=== PATIENT | female | born 1970 | race Caucasian/White ===

== ENCOUNTER 2018-06-22 06:09 | Inpatient (IN) ==
[2018-06-22] MEDS ORDERED: Albuterol 2.5 MG/3 ML NEBULIZER ONE (06:28)
[2018-06-22] MEDS ORDERED: CeFAZolin Syr 2,000MG/20 ML 2,000 MG/20 ML SYRINGE IVPB ONE (06:31)
[2018-06-22] MEDS ORDERED: Albuterol 2.5 MG/3 ML NEBULIZER IH ONE (06:31)
[2018-06-22] MEDS ORDERED: Ringers Solution, Lactated 1,000 ML IVC SCH (06:45)
[2018-06-22] MEDS ORDERED: *HR* Rocuronium Bromide 50 MG/5 ML VIAL ONE (07:07)
[2018-06-22] MEDS ORDERED: Lidocaine -MPF 4% 5 ML AMPUL ONE (07:07)
[2018-06-22] MEDS ORDERED: Lidocaine -MPF 2% 2 ML VIAL ONE (07:07)
[2018-06-22] MEDS ORDERED: *HR* FentaNYL (PF) 100 MCG/2 ML VIAL ONE ×2 (07:07→08:25)
[2018-06-22] MEDS ORDERED: *HR* Midazolam HCl 2 MG/2 ML VIAL ONE (07:07)
[2018-06-22] MEDS ORDERED: *HR* Propofol 200 MG/20 ML VIAL IVP ONE (07:08)
--- NOTE | 2018-06-22 07:17 | History & Physical Report ---
Date of Encounter: 06/22/18 Time of Encounter: 07:16 24 Hour HP Update - Instructions Instructions: If the History and Physical is less than 30 days old and was completed prior to A.M. admission and or procedure and has NOT been updated on calendar day of procedure please complete this update prior to performing procedure. - Update Patient reports changes in Medical Condition: No Changes in examination, assessment, or condition: No Changes in Medication: No Preop tests/diagnostics Reviewed: Yes Pre-Op MRSA Screen: Negative Surgery Remains Indicated: Yes Consent for Planned Operative Procedure(s) Verified: Yes - Pre-Operative Checklist Preoperative Checklist Indicated: No Prophylactic Antibiotic Ordered: Yes Home Medications Include Beta Jamilah: No Beta Jamilah Taken Today (Day of Surgery): No Beta Jamilah Taken Yesterday (Day Prior to Surgery): No Is VTE Prophylaxis Indicated?: Yes
[2018-06-22] MEDS ORDERED: Famotidine 20 MG/2 ML VIAL IVP ONE (07:37)
[2018-06-22] MEDS ORDERED: *HR* Succinylcholine 200 MG/10 ML VIAL IVP ONE (07:37)
[2018-06-22] MEDS ORDERED: Dexamethasone 4 MG/ML VIAL ONE (07:37)
[2018-06-22] MEDS ORDERED: Ondansetron 4 MG/2 ML VIAL ONE (07:37)
[2018-06-22] MEDS ORDERED: cloNIDine HCl 0.1 MG TABLET PO ONE (07:38)
[2018-06-22] MEDS ORDERED: Acetaminophen IV 1,000 MG/100 ML INFUS..BTL IVPB ONE (07:38)
[2018-06-22] MEDS ORDERED: Pregabalin 75 MG CAPSULE PO ONE (07:38)
--- NOTE | 2018-06-22 07:42 | Anesthesia Evaluation PreOp ---
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 Profound BLE Neuropathy [CANT touch feet]) Other Medical History: Renal (Stage 3 CKDz), Other (Hx Breast Ca s/p Dbl Mastectomy. Pt has whole body lymphedema/swelling - PREFERs R-ARM or L-foot IV. Declined PICC/PowerGlide at this time) Anesthesia History: No Prior Anesthetic Complications, Past Anesthesia (L-Hip scope, Breast reconstruction, Hyster, Partial Colectomy, , T&A, REctocele/Cystocele, R-knee "bone plugs") Alcohol Use: none Drug use: none Medications and Allergies Albuterol Neb [Proventil Neb] 2.5 mg IH Q2H 06/04/18 [History] Albuterol Sulfate [Ventolin Hfa] 18 gm IH PRN PRN 06/04/18 [History] Atorvastatin Calcium [Lipitor] 40 mg PO DAILY 06/04/18 [History] Dicyclomine Hcl [Bentyl] 20 mg PO DAILY PRN 06/04/18 [History] Duloxetine HCl [Cymbalta] 60 mg PO DAILY 06/04/18 [History] Fenofibrate Nanocrystallized [Fenofibrate] 160 mg PO DAILY 06/04/18 [History] Fluticasone Propionate Nasal [Flonase] 0 gm IH PRN PRN 06/04/18 [History] Lisinopril [Zestril] 40 mg PO DAILY 06/04/18 [History] Methocarbamol [Robaxin] 500 mg PO PRN PRN 06/04/18 [History] Montelukast [Singulair] 10 mg PO DAILY 06/04/18 [History] Ondansetron HCl [Zofran] 4 mg PO Q8HR PRN 06/04/18 [History] Potassium Chloride [Klor-Con 10] 10 meq PO DAILY 06/04/18 [History] Tizanidine HCl [Zanaflex] 4 mg PO DAILY 06/04/18 [History] Topiramate [Topamax] 100 mg PO BID 06/04/18 [History] Tramadol HCl [Ultram] 50 mg PO BID PRN 06/04/18 [History] Umeclidinium Brm/Vilanterol Tr [Anoro Ellipta 62.5-25 Mcg INH] 1 each IH PRN PRN 06/04/18 [History] hydrOXYzine pamoate [HydrOXYzine Pamoate] 25 mg PO DAILY 06/04/18 [History] Furosemide [Lasix] 20 mg PO DAILY 06/22/18 [History] Lidocaine 1 patch TD DAILY PRN 06/22/18 [History] Allergy/AdvReac Type Severity Reaction Status Date / Time Iodinated Contrast- Oral and Allergy Vomiting Verified 06/22/18 07:33 IV Dye iron Allergy Hives Verified 06/22/18 07:33 paclitaxel [From Taxol] Allergy Anaphylaxis Verified 06/22/18 07:33 - Meds/Allergy Pre-op Review Medications Reviewed: Yes Allergies Reviewed: Yes Beta Blockers on Current Med List: No Anesthesia Results - Labs Laboratory Tests 06/01/18 06/01/18 06/01/18 11:00 11:00 11:00 WBC 11.7 H Hgb 12.8 Hct 40.7 Plt Count 320 PT 10.9 INR 1.0 APTT 34.1 Potassium 3.8 Creatinine 1.16 Est GFR (Non-Af Amer) 49 L - Imaging EKG: report reviewed (82bpm - SINUS RHYTHM LOW QRS VOLTAGE IN PRECORDIAL LEADS [QRS DEFLECTION < 1.0 mV IN CHEST LEADS] Electronically Signed On 06-02-2018 18:06:32 EDT by Reid Jimenez) Anesthesia Exam O2 Sat Height 1.65 m Height 1.65 m Weight 101.605 kg Weight 101.605 kg O2 Sat by Pulse Oximetry 95 Vital Signs Temp Pulse Resp BP Pulse Ox 98.3 F 88 16 129/87 95 06/22/18 06:46 06/22/18 06:46 06/22/18 06:46 06/22/18 06:46 06/22/18 06:46 Height: 5'5"' Weight: 224# BMI = 38 NPO (# of Hours): MNOc - HEENT Pupil (Motor): Pupils equal Mallampati: III Teeth: Normal Oral Opening: Greater than 3 - AUTOMO[employer]LE PARKER LOC: Oriented [employer]OM[employer]ARK[employer] Motor: Normal RUE, Normal LUE, Normal RLE, Normal LLE, Normal Face [employer] PARK[employer] Sensory: Normal: RUE, LUE, RLE, LLE, Face - Cardiac Rhythm: Regular Murmur: None - Pulmonary Breath Sounds: bilateral Clear Respiratory Effort: Symmetrical Anesthesia Assess/Plan ASA Score: 3 Level of consciousness: Cooperative, Oriented, Tranquil Anesthetic Plan: General Monitoring Plan: Standard Monitors Anes Supervising Prov Stmt: PT seen/evaluated, r&B Discussed, questions answered and consent obtained. Maximo Cantu MD
[2018-06-22] MEDS ORDERED: Bacitracin 50,000 UNIT, Polymyxin B Sulfate 500,000 UNIT, Sodium Chloride IRRigation 1,... IR ONE (08:00)
[2018-06-22] MEDS ORDERED: *HR* LORazepam 1 MG TABLET ONE (08:02)
[2018-06-22] MEDS ORDERED: *HR* Remifentanil 1 MG VIAL IVP ONE (09:00)
[2018-06-22] MEDS ORDERED: Propofol 500 MG/50 ML INFUS..BTL ONE ×3 (09:05→10:37)
[2018-06-22] MEDS ORDERED: Neostigmine Methylsulfate 3 MG/3 ML SYRINGE ONE (09:39)
[2018-06-22] MEDS ORDERED: *HR* HYDROMORPHONE 2 MG/ML VIAL ONE (11:09)
[2018-06-22] MEDS ORDERED: *HR* PHENYLEPHRINE 1,000 MCG/10 ML SYRINGE IVP ONE (11:15)
--- NOTE | 2018-06-22 11:33 | Orthopedic Operative Note ---
Date of procedure: 06/22/18 Pre-op diagnosis: Spondylolisthesis, lumbar stenosis, lumbar radiculopathy Post-op diagnosis: same Operation/Findings: Posterior lumbar interbody fusion L4-L5: The patient successfully underwent general endotracheal anesthesia. The patient was given antibiotics prior to the start of the procedure. Compression boots and stockings were used for deep vein thrombosis prophylaxis. A Hoffman catheter was placed. Leads for neuro monitoring were placed on the upper and lower extremities. This included the cranium. The neuro monitoring personnel confirmed there were satisfactory readings prior to the start of the procedure. The patient was turned prone on the Maciej table. The back was prepped and draped in the usual sterile fashion. An incision was was marked and centered over the involved L4-L5 levels in the mid line. The incision was deepened through the lumbar fascia. Bovie cautery and Muñoz elevators were used to reflect the paraspinal musculature at the lateral extent of the transverse processes of the involved L4 and L5 levels. Abby clamps were placed over the L4 and L5 spinous processes. An intraoperative lateral fluorograph was obtained. A conversation was held between the surgeon and radiologist and both confirmed we had the correct operative levels. We then placed pedicle screws in standard fashion with the aid of fluoroscopy and anatomic landmarks. Briefly a starter awl was used. A gearshift was subsequently used to enter the ink printer hole via a transpedicular route into the vertebral body. The ink printer hole was tapped with an undersized instrument, and subsequently four 6.5 x 40 mm pedicle screws were placed bilaterally at the indicated L4 and L5 levels. The screws were tested with the aid of the neurologic monitoring staff via pedicle screw stimulation. All reading suggested there was no significant cortical wall breech. The screws were also evaluated fluoro- graphically and appeared to be in satisfactory position. We then turned our attention to the decompression portion of the procedure. We removed the supraspinous and interspinous ligaments and subsequently the insertion of the ligamentum flavum on the undersurface of the proximal L4 lamina was dislodged with a curette. We then removed the ligamentum flavum as well as undercut the facets at this L4-L5 level to decompress the lateral recesses. We also performed a L4 laminectomy. After the decompression, which was over and above that which was required to place the interbody graft, the foramen and traversing roots at this level were found to be free and patent. We also took part of the medial facets in order to aid in the decompression. We then protected the neural elements including the thecal sac and traversing nerve root on the right with a dural retractor. We made an annulotomy into the L4-L5 disc space and then removed entire disc material using Pituitary instruments. We trialed various size grafts after the endplates were prepared for graft insertion. A 10 x 26 enter body graft fit well within the L4-L5 disc space. We obtained some bone from the right posterior superior iliac spine through us a separate incision and combined with this with the bone which we had saved from the laminectomy portion of the procedure. This autograft bone was first placed in the anterior portion of the L4-L5 disc space and additional bone was placed within the interbody graft spacer. We then placed the interbody graft spacer obliquely across the L4-L5 disc space towards the midline while protecting the neural elements with a root retractor. When the graft was found to be in satisfactory position the veterinary medical officer was removed. We then copiously irrigated the wound. We then decorticated the L4 and L5 transverse processes as well as the facet joints of the involved L4 and L5 levels to aid in the posterolateral fusion. We placed autograft bone in the lateral gutters over these regions. We then placed rods within the screw heads of the involved L4 and L5 levels and first locked the distal screws and then subsequently locked the proximal screws so as to improve and reduce the spondylolisthesis previously seen. We then closed the wound in layers with 1 Vicryl for the fascia, 2-0 Vicryl. Subcutaneous tissue, and Dermabond was used for skin closure. Sterile dressings were placed over the wound. The patient was turned supine on a hospital bed and extubated. All sponge instruments and needle counts were correct at the end of the procedure. The patient tolerated the procedure well without complications. Anesthesia: GETA Surgeon: Reji Montanez Jr Was there an assistant wrestling coach present: No Estimated blood loss (cc): 100 Specimen: None Condition: stable Disposition: PACU
--- NOTE | 2018-06-22 13:02 | Anesthesia Evaluation Post Op ---
Date of Encounter: 06/22/18 Time of Encounter: 13:01 - Vital Signs Vital Signs: Vital Signs Temperature 98.3 F 06/22/18 06:46 Pulse Rate 88 06/22/18 06:46 Respiratory Rate 16 06/22/18 06:46 Blood Pressure 129/87 06/22/18 06:46 O2 Sat by Pulse Oximetry 95 06/22/18 06:46 Temperature 98.2 F 06/22/18 12:45 Pulse Rate 102 06/22/18 12:45 Respiratory Rate 10 06/22/18 12:45 Blood Pressure 141/90 06/22/18 12:45 O2 Sat by Pulse Oximetry 96 06/22/18 12:45 - Lungs Lungs: Clear Ascult./Percussion - Airway Airway: Non-obstructed - Cardiovascular Regular Rate - Mental Status Mental Status: Alert & Oriented, Answers Appropriately - Pain Pain Scale: 5 (pt reports she is feeling much more comfortable now and ready to walk ) Pain Scale used: Numeric (1 - 10) - Nausea Vomiting Nausea Vomiting: Not Present - Hydration Hydration: Tolerates oral liquids, Hoffman catheter - Discharge PostOp Status: Transfer Patient to floor
[2018-06-22] MEDS ORDERED: Fluticasone Propionate Nasal 50 MCG/SPRAY BOTTLE NS PRN (13:44)
[2018-06-22] MEDS ORDERED: Ondansetron 4 MG/2 ML VIAL IVP PRN (13:44)
[2018-06-22] MEDS ORDERED: Acetaminophen 325 MG TABLET PO PRN (13:44)
[2018-06-22] MEDS ORDERED: Naloxone 0.4 MG/ML INJ IVP PRN (13:44)
[2018-06-22] MEDS ORDERED: Ondansetron ODT 4 MG TAB.RAPDIS PO PRN (13:44)
[2018-06-22] MEDS ORDERED: Albuterol 2.5 MG/3 ML NEBULIZER IH PRN (13:44)
[2018-06-22] MEDS ORDERED: hydrOXYzine pamoate 25 MG CAPSULE PO PRN (13:44)
[2018-06-22] MEDS: *HR* OxyCODONE Immed Rel 5 MG TABLET PO PRN ×2 (15:38→19:55)
[2018-06-22] MEDS: Ringers Solution, Lactated 1,000 ML IVC SCH (19:03)
[2018-06-22] MEDS: Topiramate 100 MG TABLET PO SCH (19:55)
[2018-06-22] MEDS: tiZANidine 4 MG TABLET PO PRN (20:51)
[2018-06-22] MEDS: Methocarbamol 500 MG TABLET PO PRN (22:35)
[2018-06-22] MEDS: *HR* HYDROcodone/Acet 5/325 mg TABLET PO PRN (23:39)
[2018-06-23] MEDS ORDERED: Temazepam 15 MG CAPSULE PO STA (00:07)
[2018-06-23] MEDS: diazePAM 5 MG TABLET PO PRN ×2 (00:27→13:20)
[2018-06-23] MEDS: *HR* OxyCODONE Immed Rel 5 MG TABLET PO PRN ×4 (01:43→23:30)
[2018-06-23] MEDS: Ringers Solution, Lactated 1,000 ML IVC SCH (04:18)
[2018-06-23] MEDS: Methocarbamol 500 MG TABLET PO PRN ×2 (04:25→15:48)
[2018-06-23] MEDS: *HR* HYDROcodone/Acet 5/325 mg TABLET PO PRN ×2 (05:42→11:09)
[2018-06-23] MEDS: Fenofibrate 54 MG TABLET PO SCH (07:57)
[2018-06-23] MEDS: Furosemide 20 MG TABLET PO SCH (07:57)
[2018-06-23] MEDS: Lisinopril 20 MG TABLET PO SCH (07:57)
[2018-06-23] MEDS: Topiramate 100 MG TABLET PO SCH ×2 (07:58→19:53)
--- NOTE | 2018-06-23 08:11 | Orthopedics Progress Note ---
Date of Encounter: 06/23/18 Time of Encounter: 08:09 - Assessment and Plan (1) Lumbar radiculopathy Current Visit: Yes Status: Chronic (2) Lumbar stenosis Current Visit: Yes Status: Chronic Qualifiers: Neurogenic claudication status: unspecified Qualified Code(s): M48.061 - Spinal stenosis, lumbar region without neurogenic claudication (3) Spondylolisthesis Current Visit: Yes Status: Chronic Qualifiers: Spinal region: lumbar Qualified Code(s): M43.16 - Spondylolisthesis, lumbar region (4) Status post lumbar spinal fusion Current Visit: Yes Status: Acute (5) Lateral pain of left hip Current Visit: Yes Status: Acute Subjective Principal diagnosis: s/p PLIF Interval history: Date of procedure: 06/22/18 Pre-op diagnosis: Spondylolisthesis, lumbar stenosis, lumbar radiculopathy Post-op diagnosis: same Operation/Findings: Posterior lumbar interbody fusion L4-L5 The patient complains of left lateral hip pain and low back pain. Patient admits to history of trochanteric bursitis which was relieved by steroid injection to bursa. Denies any issue in past several months preop with this issue. Alert and oriented. Wearing LSO. Tender to palpation over left greater trochanter. No calf tenderness bilaterally. Neurovascularly intact with regard to bilateral lower extremities. Fires all upper and lower extremity motor groups. Assessment :stable, suspicion for left trochanteric bursitis Plan mobilize ,continue analgesics, discharge planning. Objective Vital signs: Vital Signs Temp Pulse Resp BP Pulse Ox 06/23/18 07:00 98.5 F 113 15 160/103 97 06/23/18 04:08 99.1 F 94 17 129/80 97 06/22/18 23:00 99.9 F H 95 17 159/83 99 06/22/18 20:01 98 06/22/18 19:32 97.8 F 91 17 163/88 98 06/22/18 15:31 97.9 F 100 15 150/86 93 06/22/18 14:33 97.9 F 101 14 128/87 93 06/22/18 13:58 98.1 F 111 14 137/91 97 06/22/18 13:28 98.2 F 104 12 134/62 96 06/22/18 13:15 98.2 F 106 10 138/80 96 06/22/18 13:05 107 10 142/86 96 06/22/18 12:55 104 10 128/68 93 06/22/18 12:45 98.2 F 102 10 141/90 96 06/22/18 12:35 104 10 136/98 96 06/22/18 12:25 100 10 104/79 95 06/22/18 12:15 98.1 F 100 12 118/75 97 06/22/18 12:05 99 12 120/72 95 06/22/18 11:55 98 12 115/64 95 06/22/18 11:45 98.9 F 104 12 90/60 95 Intake and Output 06/22/18 06/23/18 06/23/18 23:59 07:59 15:59 Intake Total 100 / 100 100 / 100 Output Total 1301 / 1301 Balance -1201 / -1201 100 / 100 Intake: IV Fluids 100 / 100 Ancef 2,000 MG In 0.9 % Sodium 100 / 100 Chloride 100 ML @ 200 mls/hr IVPB Q8HR [facility] Rx#:[id number] Oral 100 / 100 Output: Stool Catheter 1300 / 1300 Other: # Voids 1 1 Weight 101.7 kg Patient Weight 06/23/18 23:59 Weight 101.7 kg Consult Discharge Plan - Plan Referrals: Vu Phoenix [Primary Care Provider] - Prescriptions: Acetaminophen [Tylenol] 650 mg PO Q6HR PRN 7 Days #28 tablet PRN Reason: Pain OxyCODONE Immed Rel [Roxicodone 5 MG] 5 mg PO Q6HR PRN 5 Days #20 tablet PRN Reason: Severe Pain diazePAM [Valium] 10 mg PO Q8HR PRN 5 Days #15 tablet PRN Reason: Muscle Spasm
[2018-06-23] MEDS: Tiotropium 18 MCG inhalation IH SCH ×2 (09:09→09:20)
[2018-06-23] MEDS: tiZANidine 4 MG TABLET PO PRN ×2 (09:40→18:01)
[2018-06-23] MEDS: Acetaminophen IV 1,000 MG/100 ML INFUS..BTL IVPB ONE ×2 (16:58→18:04)
[2018-06-23] MEDS ORDERED: Ketorolac 30 MG/ML VIAL IVP ONE (18:30)
[2018-06-24] MEDS: diazePAM 5 MG TABLET PO PRN (01:21)
[2018-06-24] MEDS: *HR* OxyCODONE Immed Rel 5 MG TABLET PO PRN ×2 (04:08→08:10)
[2018-06-24] MEDS: tiZANidine 4 MG TABLET PO PRN (06:05)
[2018-06-24] MEDS: Tiotropium 18 MCG inhalation IH SCH (08:00)
--- NOTE | 2018-06-24 08:01 | Orthopedics Progress Note ---
Date of Encounter: 06/24/18 Subjective Principal diagnosis: s/p PLIF Interval history: Date of procedure: 06/22/18 Pre-op diagnosis: Spondylolisthesis, lumbar stenosis, lumbar radiculopathy Post-op diagnosis: same Operation/Findings: Posterior lumbar interbody fusion L4-L5 The patient is without complaints. Afebrile vital signs are stable. Dressing is clean dry and intact. Neurovascularly intact with regard to bilateral lower extremities. Fires all upper and lower extremity motor groups. Assessment :stable Plan mobilize ,continue analgesics, discharge planning. Objective Vital signs: Vital Signs Temp Pulse Resp BP Pulse Ox 06/24/18 06:25 98.1 F 97 18 137/96 100 06/24/18 04:10 97.8 F 100 18 130/77 99 06/23/18 23:49 98.3 F 91 17 166/89 98 06/23/18 20:27 99.2 F 06/23/18 19:55 97 06/23/18 18:23 100.4 F H 109 16 166/115 97 06/23/18 16:46 98.4 F 107 15 170/120 97 06/23/18 11:46 98.4 F 104 15 162/97 100 06/23/18 09:20 15 97 Intake and Output 06/23/18 06/24/18 06/24/18 23:59 07:59 15:59 Intake Total 500 / 500 200 / 200 Balance 500 / 500 200 / 200 Intake: Oral 500 / 500 200 / 200 Other: # Voids 1 1 Weight 101.5 kg Patient Weight 06/24/18 23:59 Weight 101.5 kg Consult Discharge Plan - Plan Referrals: Vu Phoenix [Primary Care Provider] -
[2018-06-24] MEDS: Furosemide 20 MG TABLET PO SCH (08:09)
[2018-06-24] MEDS: Fenofibrate 54 MG TABLET PO SCH (08:10)
[2018-06-24] MEDS: Lisinopril 20 MG TABLET PO SCH (08:10)
[2018-06-24] MEDS: Topiramate 100 MG TABLET PO SCH (08:11)
[2018-06-24] MEDS: Methocarbamol 500 MG TABLET PO PRN (10:12)
--- NOTE | 2018-06-24 12:50 | Discharge Summary ---
Orders not resulted at time of discharge: Pending orders 06/22/18 08:59 XR fluoroscopy <1 hr [XR] Routine 06/25/18 08:34 XR lumbar spine 2-3V [XR] Routine Date of Encounter: 06/24/18 Time of Encounter: 08:30 - Discharge Diagnosis (1) Spondylolisthesis Priority: Primary Status: Chronic Qualifiers: Spinal region: lumbar Qualified Code(s): M43.16 - Spondylolisthesis, lumbar region (2) Lumbar stenosis Priority: Primary Status: Chronic Qualifiers: Neurogenic claudication status: unspecified Qualified Code(s): M48.061 - Spinal stenosis, lumbar region without neurogenic claudication (3) Lumbar radiculopathy Priority: Primary Status: Chronic (4) Status post lumbar spinal fusion Priority: Primary Status: Acute (5) Lateral pain of left hip Priority: Secondary Status: Acute - Hospital Course Hospital course: Ms. Valverde is a 48 year old female Date of procedure: 06/22/18 Pre-op diagnosis: Spondylolisthesis, lumbar stenosis, lumbar radiculopathy Post-op diagnosis: same Operation/Findings: Posterior lumbar interbody fusion L4-L5 The patient had difficulty with pain control inpt postop. She was taking oxycodone, hydrocodone, acetaminophen, valium, robaxin, tizanidine, and lidoderm patches without relief of her left lateral hip pain. She states in the past used steroids and it resolved however postoperatively would like to avoid steroid use. Patient also noted to be CKD3 and advised against NSAID use. Progressed from intravenous analgesic needs to oral analgesic needs only though as stated her left lateral hip caused her greater pain than postop pain. Remained neurovascularly intact and mobilized satisfactorily. All intraoperative and/or postoperative radiographic studies were satisfactory. Patient is discharged home with plan for rehabilitation and follow-up in 2 weeks post discharge on analgesic medication and patient's home medications. Patient discharged home per Dr. Montanez as patient unable to tolerate hospital bed and states she will rest better at home. Warning signs discussed regarding need for reevaluation with patient and spouse who verbalized understanding. - Time Spent with Patient Total time spent providing and/or coordinating discharge services: - Discharge Medications Prescriptions: New Acetaminophen [Tylenol] 650 mg PO Q6HR PRN 7 Days #28 tablet PRN Reason: Pain OxyCODONE Immed Rel [Roxicodone 5 MG] 5 mg PO Q6HR PRN 5 Days #20 tablet PRN Reason: Severe Pain diazePAM [Valium] 10 mg PO Q8HR PRN 5 Days #15 tablet PRN Reason: Muscle Spasm Continue Umeclidinium Brm/Vilanterol Tr [Anoro Ellipta 62.5-25 Mcg INH] 1 puff IH DAILY Albuterol Sulfate [Ventolin Hfa] 2 puff IH Q4H PRN PRN Reason: Shortness Of Breath Albuterol Neb [Proventil Neb] 2.5 mg IH Q2H Tramadol HCl [Ultram] 50 mg PO BID PRN PRN Reason: Pain Topiramate [Topamax] 100 mg PO BID Tizanidine HCl [Zanaflex] 4 mg PO BID PRN PRN Reason: Muscle Pain Potassium Chloride [Klor-Con 10] 10 meq PO DAILY Ondansetron HCl [Zofran] 4 mg PO Q8HR PRN PRN Reason: Nausea Montelukast [Singulair] 10 mg PO DAILY Methocarbamol [Robaxin] 500 mg PO TID PRN PRN Reason: Muscle Pain Lisinopril [Zestril] 40 mg PO DAILY hydrOXYzine pamoate [HydrOXYzine Pamoate] 25 mg PO DAILY PRN PRN Reason: Sleep Fluticasone Propionate Nasal [Flonase] 1 spr NS DAILY PRN PRN Reason: Allergy Symptoms Fenofibrate Nanocrystallized [Fenofibrate] 160 mg PO DAILY Duloxetine HCl [Cymbalta] 60 mg PO DAILY Dicyclomine Hcl [Bentyl] 20 mg PO DAILY PRN PRN Reason: Diarrhea Atorvastatin Calcium [Lipitor] 40 mg PO DAILY Furosemide [Lasix] 20 mg PO DAILY Lidocaine 1 patch TD DAILY PRN PRN Reason: Pain Home Medications: Albuterol Neb [Proventil Neb] 2.5 mg IH Q2H 06/04/18 [History] Albuterol Sulfate [Ventolin Hfa] 2 puff IH Q4H PRN 06/04/18 [History] Atorvastatin Calcium [Lipitor] 40 mg PO DAILY 06/04/18 [History] Dicyclomine Hcl [Bentyl] 20 mg PO DAILY PRN 06/04/18 [History] Duloxetine HCl [Cymbalta] 60 mg PO DAILY 06/04/18 [History] Fenofibrate Nanocrystallized [Fenofibrate] 160 mg PO DAILY 06/04/18 [History] Fluticasone Propionate Nasal [Flonase] 1 spr NS DAILY PRN 06/04/18 [History] Lisinopril [Zestril] 40 mg PO DAILY 06/04/18 [History] Methocarbamol [Robaxin] 500 mg PO TID PRN 06/04/18 [History] Montelukast [Singulair] 10 mg PO DAILY 06/04/18 [History] Ondansetron HCl [Zofran] 4 mg PO Q8HR PRN 06/04/18 [History] Potassium Chloride [Klor-Con 10] 10 meq PO DAILY 06/04/18 [History] Tizanidine HCl [Zanaflex] 4 mg PO BID PRN 06/04/18 [History] Topiramate [Topamax] 100 mg PO BID 06/04/18 [History] Tramadol HCl [Ultram] 50 mg PO BID PRN 06/04/18 [History] Umeclidinium Brm/Vilanterol Tr [Anoro Ellipta 62.5-25 Mcg INH] 1 puff IH DAILY 06/04/18 [History] hydrOXYzine pamoate [HydrOXYzine Pamoate] 25 mg PO DAILY PRN 06/04/18 [History] Furosemide [Lasix] 20 mg PO DAILY 06/22/18 [History] Lidocaine 1 patch TD DAILY PRN 06/22/18 [History] Acetaminophen [Tylenol] 650 mg PO Q6HR PRN 7 Days #28 tablet 06/24/18 [Rx] OxyCODONE Immed Rel [Roxicodone 5 MG] 5 mg PO Q6HR PRN 5 Days #20 tablet 06/24/18 [Rx] diazePAM [Valium] 10 mg PO Q8HR PRN 5 Days #15 tablet 06/24/18 [Rx] Allergies/Adverse Reactions: Allergy/AdvReac Type Severity Reaction Status Date / Time Iodinated Contrast- Oral and Allergy Vomiting Verified 06/22/18 07:33 IV Dye iron Allergy Hives Verified 06/22/18 07:33 paclitaxel [From Taxol] Allergy Anaphylaxis Verified 06/22/18 07:33 Date of admission: 06/22/18 13:56 Primary care physician: Vu Phoenix Consults: 06/22/18 13:44 Consult to Occupational Therapy [CONS] Routine Comment: Evaluate, develop and implement POC Reason for Consult: Postoperative rehabilitation Does patient have active BEDREST order?: No Is patient medically & hemodynamically stable?: Yes Patient assessed for mobility or mobilized this visit?: No Consult to Physical Therapy [CONS] Routine Comment: Evaluate, develop and implement POC Reason for Consult: Postoperative rehabilitation Does patient have active BEDREST order?: No Is patient medically & hemodynamically stable?: Yes Patient assessed for mobility or mobilized this visit?: No Consult to Spine Navigator [CONS] [CONS] Routine 06/22/18 16:01 Consult to Pastoral Services [CONS] Routine Comment: 06/24/18 11:03 Consult to Blind Eyeletter [CONS] Routine Reason for SW Consult: HOME HEALTH Discharging clinician: Reji Montanez Jr Anticipated date of discharge: 06/24/18 - VTE Documentation of Mechanical Device: Graduated compression elastic hosiery - Impressions ITS Impressions Lumbar Spine X-Ray 06/22/18 08:59 IMPRESSION: Postsurgical changes seen at L4-5. D/ / Garrett Gonzales MD / Garrett Gonzales MD Interpreting Provider: Garrett Gonzales MD Lumbar Spine X-Ray 06/24/18 08:40 IMPRESSION: Uncomplicated posterior lumbar fusion at L4-L5 Mild diffuse degenerative disc disease D/ / Pepito Kramer MD / Pepito Kramer MD Interpreting Provider: Pepito Kramer MD - Patient Status Disposition: Home, Self-Care Condition: Fair Functional capacity at discharge: uses cane/walker Overall status at discharge: patient is progressing back to baseline - Discharge Instructions Follow Up With: Vu Phoenix [Primary Care Provider] - - Diet and Activity Activity: as per physical therapy Diet: advance to your usual diet
[2018-06-24 15:16] VITALS: BP 141/82
== END 2018-06-24 15:43 | disposition home or self-care (01) | DRG 455 ==
LOC: SAMDAY 06:09 → 3NENU 13:56
PROVIDERS: ADMIT Orthopaedic Surgery Orthopaedic Surgery of the Spine; ATTEND Orthopaedic Surgery Orthopaedic Surgery of the Spine